=== PATIENT | female | born 1995 | race Caucasian/White ===

== ENCOUNTER 2018-11-23 13:03 | Emergency (ER) | payer OTHER ==
--- NOTE | 2018-11-23 15:20 | EDM.PDOC ---
ED HPI GENERAL MEDICAL PROBLEM - General Chief Complaint: General Stated Complaint: SWOLLEN RIGHT FOOT Time Seen by Provider: 11/23/18 13:10 Source of Information: Reports: Patient - History of Present Illness INITIAL COMMENTS - FREE TEXT/NARRATIVE: 23 year old female has had onset of pain and swelling R anterior ankle, distal leg and proximal foot over the past few days. Pain is worse to move ankle and with walking. No known injury. No other joint swelling or pain at this time. Right Feet Pain Score (Numeric/FACES): 3 - Related Data Allergies Allergy/AdvReac Type Severity Reaction Status Date / Time No Known Allergies Allergy Verified 11/23/18 13:11 Home Meds: Home Meds . [No Known Home Meds] 11/23/18 [History] Past Medical History - Past Health History Medical/Surgical History: Denies Medical/Surgical History Social & Family History - Tobacco Use Smoking Status *Q: Never Smoker Second Hand Smoke Exposure: No - Caffeine Use Caffeine Use: Reports: Coffee - Alcohol Use Days Per Week of Alcohol Use: 7 Number of Drinks Per Day: 1 Total Drinks Per Week: 7 - Recreational Drug Use Recreational Drug Use: No Review of Systems - Review of Systems Review Of Systems: See Below Constitutional: Denies: Chills, Fever Mouth/Throat: Reports: No Symptoms Respiratory: Denies: Shortness of Breath Cardiovascular: Denies: Chest Pain GI/Abdominal: Denies: Abdominal Pain, Nausea, Vomiting Musculoskeletal: Reports: Joint Pain. Denies: Neck Pain, Shoulder Pain, Arm Pain Skin: Denies: Rash Neurological: Denies: Numbness, Tingling, Weakness ED EXAM, GENERAL - Physical Exam Exam: See Below General Appearance: Alert, No Apparent Distress Head: Atraumatic. No: Facial Swelling Neck: Supple, Full Range of Motion Respiratory/Chest: No Respiratory Distress, Lungs Clear Cardiovascular: Regular Rate, Rhythm Extremities: Other (there is mild tenderness over the anterior R ankle, distal R lower leg, no visible swelling, no warmth or erythem, mild pain with ankle flexion and dorsiflexion). No: Pedal Edema, Increased Warmth, Redness Neurological: No Motor/Sensory Deficits Skin Exam: Warm, Dry, Normal Color, No Rash Course - Vital Signs Last Recorded V/S: Last Vital Signs Temp 97.3 F 11/23/18 13:10 Pulse 93 11/23/18 13:10 Resp 14 11/23/18 13:10 BP 129/83 11/23/18 13:10 Pulse Ox 99 11/23/18 13:10 - Orders/Labs/Meds Labs: Laboratory Tests 11/23/18 11/23/18 11/23/18 Range/Units 13:49 13:49 13:49 WBC 7.89 (3.98-10.04) K/mm3 RBC 4.33 (3.98-5.22) M/mm3 Hgb 12.4 (11.2-15.7) gm/dl Hct 36.1 (34.1-44.9) % MCV 83.4 (79.4-94.8) fl MCH 28.6 (25.6-32.2) pg MCHC 34.3 (32.2-35.5) g/dl RDW Std Deviation 40.7 (36.4-46.3) fL Plt Count 269 (182-369) K/mm3 MPV 10.5 (9.4-12.3) fl Neut % (Auto) 60.2 (34.0-71.1) % Lymph % (Auto) 31.3 (19.3-51.7) % [place] % (Auto) 5.6 (4.7-12.5) % Eos % (Auto) 2.5 (0.7-5.8) Baso % (Auto) 0.4 (0.1-1.2) % Neut # (Auto) 4.75 (1.56-6.13) K/mm3 Lymph # (Auto) 2.47 (1.18-3.74) K/mm3 [place] # (Auto) 0.44 H (0.24-0.36) K/mm3 Eos # (Auto) 0.20 (0.04-0.36) K/mm3 Baso # (Auto) 0.03 (0.01-0.08) K/mm3 D-Dimer, Quantitative < 0.19 L (0.19-0.50) mg/L Sodium 139 (136-145) mEq/L Potassium 3.4 L (3.5-5.1) mEq/L Chloride 104 (98-107) mEq/L Carbon Dioxide 26 (21-32) mEq/L Anion Gap 12.4 (5-15) BUN 11 (7-18) mg/dL Creatinine 0.7 (0.55-1.02) mg/dL Est Cr Clr Drug Dosing 107.93 mL/min Estimated GFR (MDRD) > 60 (>60) mL/min BUN/Creatinine Ratio 15.7 (14-18) Glucose 106 (74-106) mg/dL Calcium 8.5 (8.5-10.1) mg/dL Total Bilirubin 0.3 (0.2-1.0) mg/dL AST 9 L (15-37) U/L ALT 21 (14-59) U/L Alkaline Phosphatase 62 (46-116) U/L Total Protein 6.9 (6.4-8.2) g/dl Albumin 3.6 (3.4-5.0) g/dl Globulin 3.3 gm/dL Albumin/Globulin Ratio 1.1 (1-2) TSH 3rd Generation 1.334 (0.358-3.74) uIU/mL - Re-Assessments/Exams Free Text/Narrative Re-Assessment/Exam: 11/25/18 13:01 labs including D dimer and tsh normal, discharge instr. as documented Departure - Departure Time of Disposition: 15:18 Disposition: Home, Self-Care 01 Condition: Fair Clinical Impression: Tendonitis of ankle or foot - Discharge Information Instructions: Tendinitis Referrals: Liliana Acosta PA-C [Primary Care Provider] - Forms: ED Department Discharge Additional Instructions: advil or ibuprofen 600 mg 3 times daily with food, alternate ice and heat as needed, follow up with Liliana at the clinic later this week or early next week , call for appt.
== END 2018-11-23 15:27 | disposition home or self-care (01) ==
LOC: JD.ED 13:03
DX: M77.51 Other enthesopathy of right foot and ankle (principal)
CPT/HCPCS: 36415; 80053; 84443; 85025; 85379; 99282; 99283

== ENCOUNTER 2019-10-24 15:09 | Emergency (ER) | payer OTHER ==
--- NOTE | 2019-10-24 15:27 | EDM.PDOC ---
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 No prior spotting. No abd or pelvic pain or cramping. Did have an US at about 9 wks reported to be nl. 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: Reports: - Past Surgical History Female Surgical History: Reports: D&C Social & Family History - Tobacco Use Smoking Status *Q: Never Smoker Second Hand Smoke Exposure: No - Caffeine Use Caffeine Use: Reports: None - Recreational Drug Use Recreational Drug Use: No ED ROS GENERAL - Review of Systems Review Of Systems: See Below Constitutional: Denies: Fever, Chills, Diaphoresis HEENT: Reports: No Symptoms Respiratory: Denies: Shortness of Breath, Cough Cardiovascular: Denies: Chest Pain GI/Abdominal: Denies: Abdominal Pain, Nausea, Vomiting Skin: Reports: No Symptoms Neurological: Reports: No Symptoms ED EXAM, RENAL/ - Physical Exam Exam: See Below General Appearance: Alert, No Apparent Distress Head: Atraumatic Neck: Supple Respiratory/Chest: No Respiratory Distress, Lungs Clear, Normal Breath Sounds Cardiovascular: Regular Rate, Rhythm GI/Abdominal: Soft, Non-Tender. No: Guarding Back Exam: No: CVA Tenderness (L), CVA Tenderness (R) Extremities: Normal Inspection Neurological: Alert, Oriented, No Motor/Sensory Deficits Skin Exam: Warm, Dry, Normal Color Course - Vital Signs Last Recorded V/S: Last Vital Signs Temp 97 F 10/24/19 15:22 Pulse 88 10/24/19 18:40 Resp 19 10/24/19 18:40 BP 136/90 10/24/19 18:40 Pulse Ox 100 10/24/19 18:40 - Orders/Labs/Meds Labs: Laboratory Tests 10/24/19 Range/Units 15:44 HCG, Quant 6019.0 mIU/mL - Re-Assessments/Exams Free Text/Narrative Re-Assessment/Exam: 10/24/19 18:27 HCG 6,000, too low for a 13 wk , Pelvic US shows intrauterine gest. sac, crown rump lenght 8 wk 6 days, no heart activity. Findings compat able with nonviable . Have discussed with patient. Her OB doc is from [place], She will call [facility] in AM. Return precautions given. Departure - Departure Time of Disposition: 18:29 Disposition: Home, Self-Care 01 Condition: Fair Clinical Impression: Nonviable - Discharge Information Instructions: Miscarriage, [id number] Referrals: Liliana Acosta PA-C [Primary Care Provider] - Forms: ED Department Discharge Additional Instructions: As discussed your quantitative Hcg was low at about 6,000. The expectation is that it would be considerably higher. The pelvic US does show a gestational sac with crown rump length of about 8 weeks, 6 days. No heart activity seen compatable with nonviable . Rest. Drink plenty of water to maintain hydration. Call your OB Provider's office tomorrow AM, discuss how you are doing and findings from this evening. Return if soaking more than 1 pad per abdi r for more than 2 hours or otherwise as needed. Sepsis Event Note (ED) - Evaluation Sepsis Screening Result: No Definite Risk
--- NOTE | 2019-10-24 17:57 | US ---
Trimester obstetrical ultrasound: Multiple real-time images were obtained transvaginally. Comparison: No previous study for current is available. Dates: Current ultrasound: XAVIER 05/29/20, gestational age 8 weeks 6 days Single intrauterine gestational sac is seen. Small embryo is identified. Very minimal subchorionic hemorrhage is present. Right maternal ovary not well seen. Left maternal ovary shows evidence of a cyst measuring 3.3 cm which is most likely due to corpus luteum cyst. Measurements: Earth-rump length: 2.22 cm - 8 weeks 6 days Heart rate: No heart activity is seen. Impression: 1. Single intrauterine gestation. Dates as noted above. 2. No heart activity is seen which should be visible at this gestational age. Findings are felt compatible with nonviable . Diagnostic code #5 This report was dictated in MDT
== END 2019-10-24 18:40 | disposition home or self-care (01) ==
LOC: JD.ED 15:09
DX: O36.4XX0 Maternal care for intrauterine death, not applicable or unspecified (principal)
CPT/HCPCS: 36415; 76817; 76817-26; 84702; 99284-25

== ENCOUNTER 2020-08-29 02:58 | Inpatient (IN) | payer OTHER ==
[2020-08-29] MEDS ORDERED: Nalbuphine 10 MG/1 ML Vial IVPUSH PRN (03:33)
[2020-08-29] MEDS ORDERED: Sodium Chloride 0.9% 10 ML Syringe FLUSH PRN (03:33)
[2020-08-29] MEDS ORDERED: Ampicillin 2 GM in Sodium Chloride 0.9% 100 ML IV ONE (03:33)
[2020-08-29] MEDS ORDERED: Oxytocin/Lactated Ringers 10 UNIT/1,000 ML BAG IV SCH ×2 (03:45→05:30)
[2020-08-29] MEDS: Lactated Ringers 1,000 ML IV SCH ×3 (05:33→13:55)
[2020-08-29] MEDS: Ampicillin 1 GM in Sodium Chloride 0.9% 100 ML IV SCH ×3 (08:07→15:59)
--- NOTE | 2020-08-29 09:22 | PCM.LDHP ---
L&D History of Present Illness - General Date of Service: 08/29/20 Admit Problem/Dx: Patient Status Order with Admit Dx/Problem 08/29/20 03:33 Patient Status [ADT] Routine Admission Diagnosis/Problem Admission Diagnosis/Problem 08/29/20 09:12 Jyotsna is a 30-year-old 3 para 1-0-1-1 female who is presently at 39-0/7 weeks gestational age with an XAVIER of 09/05/2020 admitted on the a.m. of 08/29 for induction of labor. Source of Information: Patient History Limitations: Reports: No Limitations - History of Present Illness Introduction:: Jyotsna is a 25-year-old 3 para 1-0-1-1 female who is presently at 39-0/7 weeks gestational age with an XAVIER of 09/05/2020 admitted on the a.m. of 08/30/19 for induction of labor. The procedure and process of induction of labor, its risks, benefits limitations and follow-up along with alternatives including allowing for natural onset of labor discussed in detail with patient. She appears to understand and wishes to proceed. She is a patient who has received her care from Dr. Kleber Ibanez who scheduled the induction. LETTERER history: 3 para 1-0-1-1. Patient had menarche at age 10. Cycles are reported to be reasonably regular. Her XAVIER of 09/05/2020 was set by a 6-6/7-week gestational age ultrasound done on 01/17/2020 and supported by at least 4 other ultrasounds during the course of her care. Her last LMP of 11/24/2019 was less than certain. Patient denies any history of STIs or abnormal Pap smears. She had a D&C done in 2018 and again in 2021 1 being done for her miscarriage. Past obstetric history includes the followin. Male infant born 02/01/2018 at 38 weeks gestational age7 hours of laborbirth weight 7 pounds 8 ounces. . Epidural used for analgesia. Baby born in [place], [place]. Child's name is Matt. Had a D&C 1 week after for bleeding reasons. course: Patient was initially seen at 6-6/7 weeks gestational age. First visit was on 02/23/2020. She had regular evaluations during the course of the . Her weight gain was approximately 37 pounds. Vital signs including blood pressure remained stable throughout the course. Her fundal height growth has been a little bit ahead of schedule but within normal limits. Patient has an anterior placenta with multiple placental lakes but no evidence of previa. Group B strep was positive and patient has received her first dose of antibiotics in L&D. The baby did measure at the 89th percentile on ultrasound on 05/28/2020. Most recent ultrasound performed on 08/21/2020 given estimated weight of 7 pounds 4 ounces (3566 g). This placed her at the 81st percentile. Patient declined prequel genetic testing. labs: Blood is a positive with a negative antibody screen. First laboratory testing showed hemoglobin 12.5 g/dL and platelets at 239,000. She is rubella immune. RPR is nonreactive. Urine culture is negative. Hepatitis B surface antigen and HIV assays both negative. Chlamydia, gonorrhea and HCV antibody testing was negative. Second trimester RPR was nonreactive on 05/28/2020. Second trimester lab testing otherwise showed a hemoglobin of 10.7 g/dL and platelet count was 220,000. Her 1 hour GTT was normal at 123. Group B strep screen was positive. Allergies: None Medications: 1. Stool softener in the form of docusate sodium 100 mg oral capsule daily 2. tablets 1 p.o. daily. Past medical history: 1. x1 02/01/2018 at 38 weeks gestational age. 2. Miscarriage 10/18/2019 Past surgical history: 1. D&C done October 2019 for miscarriage 2. D&C done 2018 Family history: Patient's mother has history of spina bifida. There are no other significant abnormalities noted in the family history such as bleeding or clotting disorders, asthma, anesthesia problems, unusual reactions to medications or related problems. Social history: Patient is . She is a [id number] mom. She is a high school graduate. Her is Lino Lopez. She does not use any significance alcohol, drugs or tobacco. She lives in [place], [place]. Review of systems: In general patient has no complaints. Reports good activity at present. No significant contractions noted. Skin: Negative Lungs: No infectious symptoms or shortness of breath Cardiovascular: No chest pain or exercise intolerance Breasts: No lumps, changes in size, pain, dimpling, discharge or axillary or supraclavicular concerns. GI: Negative : Body habitus changes associated with . Musculoskeletal: Negative Neurological: Negative Physical exam: In general the patient is well-developed, well-nourished, pleasant female of stated age in no acute distress. On last evaluation clinic on 08/22/2020 patient's blood pressure is 108/62 her weight was 244 pounds with a first weight at 207.8 pounds. Height is 5 feet 4 inches. Prepregnancy body mass index is 35.2. Skin is warm dry without lesions. HEENT, neck and back within normal limits. Lungs are clear with good breath sounds in all lung [place]. Cardiovascular exam shows regular and rhythm without murmurs. Breast exam is deferred at this time having been done at first visit and found to be normal. Patient does plan to breast-feed. Abdomen is gravid with fundal height on last evaluation clinic at 40 cm with baby in vertex presentation. Genital per digital evaluation shows cervix to be 3 cm, 80% effaced, -3 station but had well applied to the cervix. Mid position, very soft. Artificial rupture membranes undertaken with resultant clear amniotic fluid. Patient received her first dose of antibiotics consisting of ampicillin per protocol 4 hours prior to rupture membranes. Extremities and neurological exam are grossly within normal limits. - Related Data Allergies/Adverse Reactions: Allergies Allergy/AdvReac Type Severity Reaction Status Date / Time No Known Allergies Allergy Verified 10/24/19 15:24 Home Medications: Home Meds Pnv No.95/Ferrous Fum/Folic AC [ Vitamin Tablet] 1 tab PO DAILY 10/24/19 [History] Docusate Sodium [Colace] 100 mg PO BID PRN 08/29/20 [History] Nystatin [Nyamyc] 1 applic TOP DAILY PRN 08/29/20 [History] Nystatin [Nyamyc] 1 applic TOP TID 08/29/20 [History] Past Medical History - Past Health History Medical/Surgical History: Denies Medical/Surgical History HEENT History: Reports: Other (See Below) Other HEENT History: states she has drainage in ears this year Gastrointestinal History: Reports: Chronic Constipation LETTERER History: Reports: Dermatologic History: Reports: Other (See Below) Other Dermatologic History: heat rash under breast and groin area, uses nystatin power and cream - Infectious Disease History Infectious Disease History: Reports: Chicken Pox - Past Surgical History Female Surgical History: Reports: D&C Social & Family History - Family History Family Medical History: Unobtainable - Tobacco Use Tobacco Use Status *Q: Never Tobacco User - Caffeine Use Caffeine Use: Reports: None - Recreational Drug Use Recreational Drug Use: No H&P Review of Systems - Review of Systems: Review Of Systems: See Below L&D Exam - Exam Exam: See Below - Vital Signs Vital Signs: Last Vital Signs Temp 36.3 C 08/29/20 03:37 Pulse 89 08/29/20 03:37 Resp 14 08/29/20 03:37 BP 116/63 08/29/20 03:37 Pulse Ox 97 08/29/20 03:37 Weight: 110.677 kg - Patient Data Lab Results Last 24 hrs: Laboratory Results - last 24 hr 08/29/20 08/29/20 08/29/20 Range/Units 03:15 03:45 03:45 WBC 9.41 (3.98-10.04) K/mm3 RBC 4.20 (3.98-5.22) M/mm3 Hgb 11.1 L (11.2-15.7) gm/dl Hct 34.9 (34.1-44.9) % MCV 83.1 D (79.4-94.8) fl MCH 26.4 (25.6-32.2) pg MCHC 31.8 L (32.2-35.5) g/dl RDW Std Deviation 48.0 H (36.4-46.3) fL Plt Count 210 (182-369) K/mm3 MPV 10.4 (9.4-12.3) fl Neut % (Auto) 63.8 (34.0-71.1) % Lymph % (Auto) 26.4 (19.3-51.7) % [place] % (Auto) 6.3 (4.7-12.5) % Eos % (Auto) 2.9 (0.7-5.8) Baso % (Auto) 0.3 (0.1-1.2) % Neut # (Auto) 6.01 (1.56-6.13) K/mm3 Lymph # (Auto) 2.48 (1.18-3.74) K/mm3 [place] # (Auto) 0.59 H (0.24-0.36) K/mm3 Eos # (Auto) 0.27 (0.04-0.36) K/mm3 Baso # (Auto) 0.03 (0.01-0.08) K/mm3 SARS-CoV-2 RNA (BRIGITTE) Negative (NEGATIVE) Blood Type A POSITIVE Gel Antibody Screen Negative Result Diagrams: 08/29/20 03:45 - Problem List (1) 39 weeks gestation of SNOMED Code(s): 07401886 ICD Code: Z3A.39 - 39 WEEKS GESTATION OF Status: Acute Current Visit: Yes (2) Group beta Strep positive SNOMED Code(s): 113314474, 121103275 ICD Code: B95.1 - STREPTOCOCCUS, GROUP B, CAUSING DISEASES CLASSD [id number] Status: Acute Current Visit: Yes (3) Obesity (BMI 30-39.9) SNOMED Code(s): 642672979, 648685601 ICD Code: E66.9 - OBESITY, UNSPECIFIED Status: Acute Current Visit: Yes Problem List Initiated/Reviewed/Updated: Yes Orders Last 24hrs: Active Orders 24 hr Category Date Time Status Patient Status [ADT] Routine ADT 08/29/20 03:33 Active Activity as Tolerated [RC] PFP Care 08/29/20 03:33 Active Antiembolic Devices [RC] PER UNIT ROUTINE Care 08/29/20 06:28 Active Communication Order [RC] ASDIRECTED Care 08/29/20 03:33 Active Notify Provider [RC] PFP Care 08/29/20 03:33 Active Notify Provider [RC] PRN Care 08/29/20 03:33 Active Peripheral IV Care [RC] Q4HR Care 08/29/20 03:34 Active Vital Signs [RC] PER UNIT ROUTINE Care 08/29/20 03:33 Active Regular Diet [DIET] Diet 08/29/20 Breakfast Active RAPID PLASMA REAGIN,RPR [CHEM] Routine Lab 08/29/20 03:45 Received Ampicillin 1 gm Med 08/29/20 08:00 Active Sodium Chloride 0.9% [Normal Saline] 100 ml IV Q4H Lactated Ringers [Ringers, Lactated] 1,000 ml Med 08/29/20 03:45 Active IV ASDIRECTED Nalbuphine [Nubain] Med 08/29/20 03:33 Active 10 mg IVPUSH Q2H PRN Oxytocin/Lactated Ringers [Pitocin in LR 10 Units/1,000 Med 08/29/20 03:45 Active ML] 10 unit in 1,000 ml IV .CONTINUOUS Oxytocin/Lactated Ringers [Pitocin in LR 10 Units/1,000 Med 08/29/20 05:30 Active ML] 10 unit in 1,000 ml IV TITRATE Sodium Chloride 0.9% [Saline Flush] Med 08/29/20 03:33 Active 10 ml FLUSH ASDIRECTED PRN Electronic Heart Tones Ext w TOCO [WOMSER] Ot 08/29/20 03:33 Ordered Routine Electronic Heart Tones Internal [WOMSER] Per Unit Ot 08/29/20 03:33 Ordered Routine Peripheral IV Insertion Adult [OM.PC] Routine Ot 08/29/20 03:33 Ordered PILO Hose [Antiembolic Hose] [OM.PC] Routine Ot 08/29/20 06:27 Ordered Resuscitation Status Routine Resus Stat 08/29/20 03:33 Ordered Medication Orders Ampicillin Sodium 1 gm/ Sodium (Chloride) 100 mls @ 200 mls/hr IV Q4H IVETH Last Admin: 08/29/20 08:07 Dose: 200 mls/hr Documented by: JUAN MANUEL Oxytocin/Lactated Ringer's (Pitocin In Lr 10 Units/1,000 Ml) 10 unit in 1,000 mls @ 500 mls/hr IV .CONTINUOUS IVETH Lactated Ringer's (Ringers, Lactated) 1,000 mls @ 100 mls/hr IV ASDIRECTED IVETH Last Admin: 08/29/20 05:33 Dose: 100 mls/hr Documented by: KATHERINE Oxytocin/Lactated Ringer's (Pitocin In Lr 10 Units/1,000 Ml) 10 unit in 1,000 mls @ 12 mls/hr IV TITRATE IVETH; Protocol Last Titration: 08/29/20 08:15 Dose: 10 munits/min, 60 mls/hr Documented by: JUAN MANUEL Titration: 08/29/20 07:10 Dose: 8 munits/min, 48 mls/hr Documented by: Titration: 08/29/20 06:40 Dose: 6 munits/min, 36 mls/hr Documented by: Titration: 08/29/20 06:10 Dose: 4 munits/min, 24 mls/hr Documented by: Admin: 08/29/20 05:34 Dose: 2 munits/min, 12 mls/hr Documented by: KATHERINE Nalbuphine HCl (Nalbuphine 10 Mg/1 Ml Vial) 10 mg IVPUSH Q2H PRN PRN Reason: Pain Sodium Chloride (Sodium Chloride 0.9% 10 Ml Syringe) 10 ml FLUSH ASDIRECTED PRN PRN Reason: Keep Vein Open Assessment/Plan Comment:: 1. Jyotsna is a 30-year-old 3 para 1-0-1-1 female who is presently at 39- 0/7 weeks gestational age with an XAVIER of 09/05/2020 admitted on the a.m. of 08/29/2020 for induction of labor. 2. Group B strep positive status 3. Patient had her Tdap on 06/26/2020. She is rubella immune. 4. Patient plans to breast-feed 5. Patient wishes to have a natural labor but is okay with epidural 6. Risk factors for the include obesity. Plan: 1. Pitocin induction of labor was artificial rupture membranes augmentation with resultant clear amniotic fluid. 2. Group B strep prophylaxis ampicillin per protocol 3. Support breast-feeding decision 4. Epidural per patient desire 5. Admission labs consist of CBC, Covid testing, RPR.
[2020-08-29] MEDS ORDERED: diphenhydrAMINE 50 MG/ML SDV IVPUSH PRN (11:31)
[2020-08-29] MEDS ORDERED: Bupivacaine/fentaNYL/NS 100 ML Bag EPIDUR PRN (11:31)
[2020-08-29] MEDS ORDERED: ePHEDrine 50 MG/ML SDV IVPUSH PRN (11:31)
[2020-08-29] MEDS ORDERED: fentaNYL 100 MCG/2 ML SDV EPIDUR PRN (11:31)
--- NOTE | 2020-08-29 12:01 | PCM.PREANE ---
Preanesthetic Assessment - Procedure Proposed Procedure: octavia - Anesthesia/Transfusion/Family Hx Anesthesia History: Prior Anesthesia Without Reaction Family History of Anesthesia Reaction: No Transfusion History: No Prior Transfusion(s) - Review of Systems General: No Symptoms Pulmonary: No Symptoms Cardiovascular: No Symptoms Gastrointestinal: No Symptoms Neurological: No Symptoms Other: Reports: None - Physical Assessment Vital Signs: Last Vital Signs Temp 97.4 F 08/29/20 03:37 Pulse 89 08/29/20 03:37 Resp 14 08/29/20 03:37 BP 116/63 08/29/20 03:37 Pulse Ox 97 08/29/20 03:37 Height: 5 ft 4 in Weight: 110.677 kg ASA Class: 2 Mental Status: Alert & Oriented x3 Airway Class: Mallampati = 1 Dentition: Reports: Normal Dentition Thyro-Mental Finger Breadths: 3 Mouth Opening Finger Breadths: 3 ROM/Head Extension: Full Lungs: Clear to Auscultation, Normal Respiratory Effort Cardiovascular: Regular Rate, Regular Rhythm - Lab Values: Laboratory Last Values WBC 9.41 K/mm3 (3.98-10.04) 08/29/20 03:45 RBC 4.20 M/mm3 (3.98-5.22) 08/29/20 03:45 Hgb 11.1 gm/dl (11.2-15.7) L 08/29/20 03:45 Hct 34.9 % (34.1-44.9) 08/29/20 03:45 MCV 83.1 fl (79.4-94.8) D 08/29/20 03:45 MCH 26.4 pg (25.6-32.2) 08/29/20 03:45 MCHC 31.8 g/dl (32.2-35.5) L 08/29/20 03:45 RDW Std Deviation 48.0 fL (36.4-46.3) H 08/29/20 03:45 Plt Count 210 K/mm3 (182-369) 08/29/20 03:45 MPV 10.4 fl (9.4-12.3) 08/29/20 03:45 Neut % (Auto) 63.8 % (34.0-71.1) 08/29/20 03:45 Lymph % (Auto) 26.4 % (19.3-51.7) 08/29/20 03:45 Warrick % (Auto) 6.3 % (4.7-12.5) 08/29/20 03:45 Eos % (Auto) 2.9 (0.7-5.8) 08/29/20 03:45 Baso % (Auto) 0.3 % (0.1-1.2) 08/29/20 03:45 Neut # (Auto) 6.01 K/mm3 (1.56-6.13) 08/29/20 03:45 Lymph # (Auto) 2.48 K/mm3 (1.18-3.74) 08/29/20 03:45 Warrick # (Auto) 0.59 K/mm3 (0.24-0.36) H 08/29/20 03:45 Eos # (Auto) 0.27 K/mm3 (0.04-0.36) 08/29/20 03:45 Baso # (Auto) 0.03 K/mm3 (0.01-0.08) 08/29/20 03:45 SARS-CoV-2 RNA (BRIGITTE) Negative (NEGATIVE) 08/29/20 03:15 Blood Type A POSITIVE 08/29/20 03:45 Gel Antibody Screen Negative 08/29/20 03:45 - Allergies Allergies/Adverse Reactions: Allergies Allergy/AdvReac Type Severity Reaction Status Date / Time No Known Allergies Allergy Verified 10/24/19 15:24 - Blood Blood Available: No - Acknowledgements Anesthesia Type Planned: Epidural Pt an Appropriate Candidate for the Planned Anesthesia: Yes Alternatives and Risks of Anesthesia Discussed w Pt/Guardian: Yes Pt/Guardian Understands and Agrees with Anesthesia Plan: Yes PreAnesthesia Questionnaire - Past Health History Medical/Surgical History: Denies Medical/Surgical History HEENT History: Reports: Other (See Below) Other HEENT History: states she has drainage in ears this year Cardiovascular History: Reports: None Respiratory History: Reports: None Gastrointestinal History: Reports: Chronic Constipation PUMP OILER History: Reports: : 3 Para: 1 Musculoskeletal History: Reports: None Endocrine/Metabolic History: Reports: Obesity/BMI 30+ Dermatologic History: Reports: Other (See Below) Other Dermatologic History: heat rash under breast and groin area, uses nystatin power and cream - Infectious Disease History Infectious Disease History: Reports: Chicken Pox - Past Surgical History Female Surgical History: Reports: D&C - SUBSTANCE USE Tobacco Use Status *Q: Former Tobacco User Tobacco Use Within Last Twelve Months: Vaping Second Hand Smoke Exposure: No Days Per Week of Alcohol Use: 0 Recreational Drug Use History: No - HOME MEDS Home Medications: Home Meds Pnv No.95/Ferrous Fum/Folic AC [ Vitamin Tablet] 1 tab PO DAILY 10/24/19 [History] Docusate Sodium [Colace] 100 mg PO BID PRN 08/29/20 [History] Nystatin [Nyamyc] 1 applic TOP DAILY PRN 08/29/20 [History] Nystatin [Nyamyc] 1 applic TOP TID 08/29/20 [History] - CURRENT (IN HOUSE) MEDS Current Meds: Current Medications Diphenhydramine HCl (Diphenhydramine 50 Mg/Ml Sdv) 25 mg IVPUSH Q6H PRN PRN Reason: pruritis Ephedrine Sulfate (Ephedrine 50 Mg/Ml Sdv) 5 mg IVPUSH ASDIRECTED PRN PRN Reason: Hypotension Fentanyl (Fentanyl 100 Mcg/2 Ml Sdv) 100 mcg EPIDUR Q3H PRN PRN Reason: Pain Last Admin: 08/29/20 11:39 Dose: 100 mcg Documented by: Fentanyl/Bupivacaine HCl (Bupivacaine/Fentanyl/Ns 100 Ml Bag) 100 ml EPIDUR ASDIRECTED PRN PRN Reason: Pain Last Admin: 08/29/20 11:40 Dose: 100 ml Documented by: Ampicillin Sodium 1 gm/ Sodium (Chloride) 100 mls @ 200 mls/hr IV Q4H IVETH Last Admin: 08/29/20 08:07 Dose: 200 mls/hr Documented by: Oxytocin/Lactated Ringer's (Pitocin In Lr 10 Units/1,000 Ml) 10 unit in 1,000 mls @ 500 mls/hr IV .CONTINUOUS IVETH Lactated Ringer's (Ringers, Lactated) 1,000 mls @ 100 mls/hr IV ASDIRECTED IVETH Last Admin: 08/29/20 11:42 Dose: 100 mls/hr Documented by: Oxytocin/Lactated Ringer's (Pitocin In Lr 10 Units/1,000 Ml) 10 unit in 1,000 mls @ 12 mls/hr IV TITRATE IVETH; Protocol Last Titration: 08/29/20 10:00 Dose: 12 munits/min, 72 mls/hr Documented by: Nalbuphine HCl (Nalbuphine 10 Mg/1 Ml Vial) 10 mg IVPUSH Q2H PRN PRN Reason: Pain Sodium Chloride (Sodium Chloride 0.9% 10 Ml Syringe) 10 ml FLUSH ASDIRECTED PRN PRN Reason: Keep Vein Open Discontinued Medications Ampicillin Sodium 2 gm/ Sodium (Chloride) 100 mls @ 200 mls/hr IV ONETIME ONE Stop: 08/29/20 04:02 Last Admin: 08/29/20 04:15 Dose: 200 mls/hr Documented by:
[2020-08-29] MEDS ORDERED: Bupivacaine 0.25% 10 ML SDV ONE (16:00)
--- NOTE | 2020-08-29 19:07 | PCM.SN.2 ---
- Free Text/Narrative Note: Labor and delivery note: Stage I: Jyotsna is a 30-year-old 3 para 1-0-1-1 female who is presently at 39-0/7 weeks gestational age with an XAVIER of 09/05/2020 admitted on the a.m. of 08/29/2020 for induction of labor. Induction was started with Pitocin and after adequate descent and engagement of the head AROM was undertaken with resultant clear amniotic fluid. Pitocin was continued with good progress. Patient underwent labor epidural for analgesia. She had good results with this. She achieved complete cervical dilation by approximately 1700 hrs. Stage II: The patient had a spontaneous vaginal delivery at 1720 hrs. on 08/29/2020. Nuchal cord was noted x2 and this was reduced over the baby's head without problems. She delivered a viable, ojeda, male infant named Gerry Huynh in a direct occiput anterior position. Gerry Huynh weighed 3400 g (7 pounds 7.9 ounces) and had Apgars of 8 and 9. The baby was placed on mom's abdomen, dried with warm blanket, nose and mouth were bulb suctioned. Pitocin was increased to 500 cc/h with the present solution concentration. This to facilitate increase in uterine tone and decrease likelihood of bleeding. Patient was noted to have an intact perineum. The umbilical cord is allowed to pulsate x2 to 3 minutes and then was clamped x2 and cut. Cord had 3 vessels. Cord blood was obtained. Stage III: Reta delivered the placenta at 1724 hrs. in a Resendez presentation. It appeared intact and complete and was discarded per patient desire. Estimated blood loss was 100 cc. Condition: Good. Patient plans to breast-feed.
[2020-08-29] MEDS ORDERED: Benzocaine/Menthol 20%-0.5% Spray 56 GM Canister TOP PRN (19:11)
[2020-08-29] MEDS ORDERED: Witch Hazel Medicated Pads 40/Jar TOP PRN (19:11)
[2020-08-29] MEDS: Ibuprofen 600 MG Tab PO PRN (19:41)
[2020-08-29] MEDS: Docusate Sodium 100 MG Cap PO PRN (19:42)
[2020-08-29] MEDS: Acetaminophen 325 MG Tab PO PRN (22:49)
[2020-08-30] MEDS: Ibuprofen 600 MG Tab PO PRN ×3 (03:47→13:36)
--- NOTE | 2020-08-30 07:49 | PCM.SN.2 ---
- Free Text/Narrative Note: Visited patient regarding patient's epidural experience. Patient stated that the epidural "worked great" and was very happy about her experience. Patient denying nausea/vomiting, headache, dizziness, ringing in ears, or signs of infection. Patient complaining of mild back discomfort, discussed that it is normal to have some discomfort but to let the nurse know if there is any increased pain. Discussed signs and symptoms of post-dural puncture headaches, signs of infection, and any increased pain in back. Encouraged patient to contact OB/Anesthesia if any of these symptoms develop so anesthesia can evaluate and treat if needed. Patient verbalized understanding and appeared to be happy baby thr oughout conversation. Ila Reardon CHALKER SOLES
[2020-08-30] MEDS: Docusate Sodium 100 MG Cap PO PRN (08:22)
--- NOTE | 2020-08-30 08:42 | PCM.SN.2 ---
- Free Text/Narrative Note: Post Progress Note PPD #1 Subjective: Doing well overall. Reports that she has been having increased amounts of cramping pain overnight and is uncertain if the pain medications have been helping. She has been taking Tylenol and ibuprofen routinely throughout the night. Ambulating without difficulty. Lochia minimal. Voiding without difficulty. Tolerating regular diet without nausea or vomiting. Reports that she has been having minimal breast-feeding throughout the night and that the baby has been feeding well at times and not as well at other times. Reports that her swelling in her legs increased after delivery and has been stable since delivery. Objective: Vitals: Vital Signs - 24 hr 08/29/20 08/30/20 23:55 02:58 Temperature 36.1 C 36.6 C Pulse, 77 66 Peripheral Respiratory 18 16 Rate Blood Pressure 124/85 125/72 O2 Sat by Pulse 98 98 Oximetry Physical Exam General: Alert and oriented, no acute distress Lungs: Clear to auscultation bilaterally Heart: Regular rate and rhythm Abdomen: Soft, minimal appropriate tenderness, non-distended, fundus midline, nontender, and at the umbilicus Extremities: 1+ edema in bilateral lower extremities to knees, PILO hose in place, no calf tenderness bilaterally Laboratory Results - last 24 hr 08/29/20 08/30/20 Range/Units 03:45 05:48 WBC 14.06 H (3.98-10.04) K/mm3 RBC 3.76 L (3.98-5.22) M/mm3 Hgb 10.0 L (11.2-15.7) gm/dl Hct 31.6 L (34.1-44.9) % MCV 84.0 (79.4-94.8) fl MCH 26.6 (25.6-32.2) pg MCHC 31.6 L (32.2-35.5) g/dl RDW Std Deviation 48.7 H (36.4-46.3) fL Plt Count 190 (182-369) K/mm3 MPV 10.4 (9.4-12.3) fl Neut % (Auto) 72.5 H (34.0-71.1) % Lymph % (Auto) 17.8 L (19.3-51.7) % Barren % (Auto) 7.3 (4.7-12.5) % Eos % (Auto) 2.1 (0.7-5.8) Baso % (Auto) 0.2 (0.1-1.2) % Neut # (Auto) 10.18 H (1.56-6.13) K/mm3 Lymph # (Auto) 2.50 (1.18-3.74) K/mm3 Barren # (Auto) 1.03 H (0.24-0.36) K/mm3 Eos # (Auto) 0.30 (0.04-0.36) K/mm3 Baso # (Auto) 0.03 (0.01-0.08) K/mm3 RPR Non-reactive (NONREACTIVE) ASSESSMENT: 25-year-old female -0-1-2 s/p normal vaginal delivery PPD #1, complicated by GBS positive status and received a total of 4 doses of antibiotics prior to delivery and obesity in PLAN: Doing well Breast-feeding with minimal difficulty. Assist as needed Lochia minimal. Continue to monitor for appropriate lochia. Continue routine care Anticipate discharge home today Kleber Ibanez MD 8:41 AM 08/30/2020
--- NOTE | 2020-08-30 08:48 | PCM.DCSUM1 ---
Discharge Summary - Hospital Course Free Text/Narrative:: Stage I: Jyotsna is a 30-year-old 3 para 1-0-1-1 female who is presently at 39-0/7 weeks gestational age with an XAVIER of 09/05/2020 admitted on the a.m. of 08/29/2020 for induction of labor. Induction was started with Pitocin and after adequate descent and engagement of the head AROM was undertaken with resultant clear amniotic fluid. Pitocin was continued with good progress. Patient underwent labor epidural for analgesia. She had good results with this. She achieved complete cervical dilation by approximately 1700 hrs. Stage II: The patient had a spontaneous vaginal delivery at 1720 hrs. on 08/29/2020. Nuchal cord was noted x2 and this was reduced over the baby's head without problems. She delivered a viable, ojeda, male named Gerry Huynh in a direct occiput anterior position. Gerry Huynh weighed 3400 g (7 pounds 7.9 ounces) and had Apgars of 8 and 9. The baby was placed on mom's abdomen, dried with warm blanket, nose and mouth were bulb suctioned. Pitocin was increased to 500 cc/h with the present solution concentration. This to facilitate increase in uterine tone and decrease likelihood of bleeding. Patient was noted to have an intact perineum. The umbilical cord is allowed to pulsate x2 to 3 minutes and then was clamped x2 and cut. Cord had 3 vessels. Cord blood was obtained. Stage III: Reta delivered the placenta at 1724 hrs. in a Resendez presentation. It appeared intact and complete and was discarded per patient desire. Estimated blood loss was 100 cc. Condition: Good. Patient plans to breast-feed. Diagnosis: Stroke: No - Discharge Data Discharge Date: 08/30/20 Discharge Disposition: Home, Self-Care 01 Condition: Good - Referral to Home Health Primary Care Physician: Jason Borden MD - Discharge Diagnosis/Problem(s) (1) Vaginal delivery SNOMED Code(s): 267364579 ICD Code: O80 - ENCOUNTER FOR FULL-TERM UNCOMPLICATED DELIVERY Status: Acute Current Visit: Yes (2) 39 weeks gestation of SNOMED Code(s): 87250338 ICD Code: Z3A.39 - 39 WEEKS GESTATION OF Status: Acute Current Visit: Yes (3) Group beta Strep positive SNOMED Code(s): 465535666, 234828478 ICD Code: B95.1 - STREPTOCOCCUS, GROUP B, CAUSING DISEASES CLASSD [id number] Status: Acute Current Visit: Yes (4) Obesity SNOMED Code(s): 600614905, 664119022 ICD Code: E66.9 - OBESITY, UNSPECIFIED Status: Acute Current Visit: Yes - Patient Summary/Data Complications: None Consults: None Hospital Course: Jyotsna Lopez was admitted for elective induction of labor. On admission her cervix was dilated to 3 cm. She was GBS positive and was started on ampicillin for GBS prophylaxis. She received a total of 4 doses prior to delivery. She was given pitocin for induction of labor. She had artificial rupture of membranes with clear fluid. She had an epidural for anesthesia. She progressed to complete and began pushing. On 08/29/2020 she had a normal vaginal delivery of a live male infant at 17:20. Apgars of 8 and 9. Weight of 3400 g (7 pounds 7.9 ounces). Her course was uneventful. Her pain was well controlled and she had minimal lochia. She was ambulating, tolerating a regular diet and voiding normally. She was breast-feeding with minimal difficulty. She was afebrile and her hematocrit was 31.6 on PPD #1. She desired to be discharged home in the afternoon of PPD #1. Her blood type is A+. - Patient Instructions Diet: Regular Diet as Tolerated Activity: Apply Ice, As Tolerated Activity, Other: Nothing in the vagina for 6 weeks Driving: May Drive Today Showering/Bathing: May Shower Notify Provider of: Fever, Increased Pain, Swelling and Redness, Drainage, Nausea and/or Vomiting Other/Special Instructions: Please contact your physician's office if you have heavy vaginal bleeding enough to soak a pad in less than an hour for several hours. Monitor for any signs of an infection in the breasts with severe pain or redness of the breast. - Discharge Plan *PRESCRIPTION DRUG MONITORING PROGRAM REVIEWED*: Not Applicable *COPY OF PRESCRIPTION DRUG MONITORING REPORT IN PATIENT NATALYA: Not Applicable Home Medications: Home Meds Pnv No.95/Ferrous Fum/Folic AC [ Vitamin Tablet] 1 tab PO DAILY 10/24/19 [History] Docusate Sodium [Colace] 100 mg PO BID PRN 08/29/20 [History] Nystatin [Nyamyc] 1 applic TOP DAILY PRN 08/29/20 [History] Nystatin [Nyamyc] 1 applic TOP TID 08/29/20 [History] Acetaminophen [Tylenol] 650 mg PO Q4H PRN tablet 08/30/20 [Rx] Benzocaine/Menthol [Dermoplast Pain Relief Dixon] 1 spray TOP ASDIRECTED PRN canister 08/30/20 [Rx] Ibuprofen [Motrin] 600 mg PO Q6H PRN tablet 08/30/20 [Rx] witch Brianna [Tucks] 1 pad TOP ASDIRECTED PRN pad 08/30/20 [Rx] Patient Handouts: Care After Vaginal Delivery Referrals: Kleber Ibanez MD [Physician] - (Follow-up in 2 to 3 weeks for routine visit or earlier as needed.) - Discharge Summary/Plan Comment DC Time >30 min.: No - Patient Data Vitals - Most Recent: Last Vital Signs Temp 36.6 C 08/30/20 02:58 Pulse 66 08/30/20 02:58 Resp 16 08/30/20 02:58 BP 125/72 08/30/20 02:58 Pulse Ox 98 08/30/20 02:58 Weight - Most Recent: 110.677 kg I&O - Last 24 hours: Intake & Output 08/29/20 08/30/20 08/30/20 22:59 06:59 14:59 Output Total 113 Balance -113 Lab Results - Last 24 hrs: Laboratory Results - last 24 hr 08/29/20 08/30/20 Range/Units 03:45 05:48 WBC 14.06 H (3.98-10.04) K/mm3 RBC 3.76 L (3.98-5.22) M/mm3 Hgb 10.0 L (11.2-15.7) gm/dl Hct 31.6 L (34.1-44.9) % MCV 84.0 (79.4-94.8) fl MCH 26.6 (25.6-32.2) pg MCHC 31.6 L (32.2-35.5) g/dl RDW Std Deviation 48.7 H (36.4-46.3) fL Plt Count 190 (182-369) K/mm3 MPV 10.4 (9.4-12.3) fl Neut % (Auto) 72.5 H (34.0-71.1) % Lymph % (Auto) 17.8 L (19.3-51.7) % Curry % (Auto) 7.3 (4.7-12.5) % Eos % (Auto) 2.1 (0.7-5.8) Baso % (Auto) 0.2 (0.1-1.2) % Neut # (Auto) 10.18 H (1.56-6.13) K/mm3 Lymph # (Auto) 2.50 (1.18-3.74) K/mm3 Curry # (Auto) 1.03 H (0.24-0.36) K/mm3 Eos # (Auto) 0.30 (0.04-0.36) K/mm3 Baso # (Auto) 0.03 (0.01-0.08) K/mm3 RPR Non-reactive (NONREACTIVE) Med Orders - Current: Current Medications Acetaminophen (Acetaminophen 325 Mg Tab) 650 mg PO Q4H PRN PRN Reason: mild pain or fever Last Admin: 08/29/20 22:49 Dose: 650 mg Documented by: Benzocaine/Menthol (Benzocaine/Menthol 20%-0.5% Dixon 56 Gm Canister) 0 gm TOP ASDIRECTED PRN PRN Reason: Perineal Comfort Measure Docusate Sodium (Docusate Sodium 100 Mg Cap) 100 mg PO BID PRN PRN Reason: Constipation Last Admin: 08/30/20 08:22 Dose: 100 mg Documented by: Ibuprofen (Ibuprofen 600 Mg Tab) 600 mg PO Q4H PRN PRN Reason: Mild pain or fever Last Admin: 08/30/20 08:22 Dose: 600 mg Documented by: Prenat Multivit/Roosevelt/Iron/Folic Ac ( Multivitamin With Calcium/Folic Acid/Iron Tab) 1 each PO DAILY IVETH Last Admin: 08/30/20 08:22 Dose: 1 each Documented by: Luz Marina Cabrera (Luz Marina Cabrera Medicated Pads 40/Jar) 1 pad TOP ASDIRECTED PRN PRN Reason: Perineal Comfort Measure Discontinued Medications Diphenhydramine HCl (Diphenhydramine 50 Mg/Ml Sdv) 25 mg IVPUSH Q6H PRN PRN Reason: pruritis Ephedrine Sulfate (Ephedrine 50 Mg/Ml Sdv) 5 mg IVPUSH ASDIRECTED PRN PRN Reason: Hypotension Fentanyl (Fentanyl 100 Mcg/2 Ml Sdv) 100 mcg EPIDUR Q3H PRN PRN Reason: Pain Last Admin: 08/29/20 11:39 Dose: 100 mcg Documented by: Fentanyl/Bupivacaine HCl (Bupivacaine/Fentanyl/Ns 100 Ml Bag) 100 ml EPIDUR ASDIRECTED PRN PRN Reason: Pain Last Admin: 08/29/20 11:40 Dose: 100 ml Documented by: Ampicillin Sodium 2 gm/ Sodium (Chloride) 100 mls @ 200 mls/hr IV ONETIME ONE Stop: 08/29/20 04:02 Last Admin: 08/29/20 04:15 Dose: 200 mls/hr Documented by: Ampicillin Sodium 1 gm/ Sodium (Chloride) 100 mls @ 200 mls/hr IV Q4H IVETH Last Admin: 08/29/20 15:59 Dose: 200 mls/hr Documented by: Oxytocin/Lactated Ringer's (Pitocin In Lr 10 Units/1,000 Ml) 10 unit in 1,000 mls @ 500 mls/hr IV .CONTINUOUS IVETH Last Admin: 08/29/20 17:46 Dose: 500 mls/hr Documented by: Lactated Ringer's (Ringers, Lactated) 1,000 mls @ 100 mls/hr IV ASDIRECTED IVETH Last Admin: 08/29/20 13:55 Dose: 100 mls/hr Documented by: Oxytocin/Lactated Ringer's (Pitocin In Lr 10 Units/1,000 Ml) 10 unit in 1,000 mls @ 12 mls/hr IV TITRATE IVETH; Protocol Last Titration: 08/29/20 17:20 Dose: 83.33 munits/min, 500 mls/hr Documented by: Nalbuphine HCl (Nalbuphine 10 Mg/1 Ml Vial) 10 mg IVPUSH Q2H PRN PRN Reason: Pain Sodium Chloride (Sodium Chloride 0.9% 10 Ml Syringe) 10 ml FLUSH ASDIRECTED PRN PRN Reason: Keep Vein Open
[2020-08-30] MEDS ORDERED: Prenatal Multivitamin with Calcium/Folic Acid/Iron Tab PO SCH (09:00)
[2020-08-30] MEDS: Acetaminophen 325 MG Tab PO PRN ×2 (11:54→16:09)
== END 2020-08-30 18:35 | disposition home or self-care (01) | DRG 807 ==
LOC: JD.OB 02:58 → OBSVTOIN 17:20 → JD.OB 17:20
PROVIDERS: ADMIT Obstetrics & Gynecology; ATTEND Obstetrics & Gynecology
PROC: 10E0XZZ Delivery of Products of Conception, External Approach (ICD-10-PCS; principal; 2020-08-29)
PROC: 10907ZC Drainage of Amniotic Fluid, Therapeutic from Products of Conception, Via Natural or Artificial Opening (ICD-10-PCS; 2020-08-29)
PROC: 3E033VJ Introduction of Other Hormone into Peripheral Vein, Percutaneous Approach (ICD-10-PCS; 2020-08-29)
PROC: 3E0R3BZ Introduction of Anesthetic Agent into Spinal Canal, Percutaneous Approach (ICD-10-PCS; 2020-08-29)
PROC: 00HU33Z Insertion of Infusion Device into Spinal Canal, Percutaneous Approach (ICD-10-PCS; 2020-08-29)
DX: O99.824 Streptococcus B carrier state complicating childbirth (principal); Z37.0 Single live birth; O99.214 Obesity complicating childbirth; O99.62 Diseases of the digestive system complicating childbirth; K59.09 Other constipation; O69.81X0 Labor and delivery complicated by cord around neck, without compression, not applicable or unspecified; Z20.822 Contact with and (suspected) exposure to COVID-19; Z3A.39 39 weeks gestation of pregnancy; Z87.891 Personal history of nicotine dependence
CPT/HCPCS: 01967; 36415; 51702; 59025; 59409; 85025; 86592; 86850; 86900; 86901; A9270-GY; J0290; J2590; J3010; J3490; J7120; U0002

== ENCOUNTER 2020-11-06 11:56 | Emergency (ER) | payer OTHER ==
[2020-11-06] MEDS ORDERED: HYDROmorphone 1 MG/ML Syringe IM ONE (12:15)
[2020-11-06] MEDS ORDERED: Sulfamethoxazole/Trimethoprim 800-160 MG Tab PO ONE (12:15)
--- NOTE | 2020-11-06 12:25 | EDM.PDOC ---
ED HPI GENERAL MEDICAL PROBLEM - General Chief Complaint: Lower Extremity Injury/Pain Stated Complaint: SWOLLEN AND RED LEGS POST INGROWN TOE NAIL REMOVAL Time Seen by Provider: 11/06/20 12:10 Source of Information: Reports: Patient, RN Notes Reviewed History Limitations: Reports: No Limitations - History of Present Illness INITIAL COMMENTS - FREE TEXT/NARRATIVE: Patient is a 25-year-old female who presents to the ER for the evaluation of a painful foot. Patient states she had an ingrown toenail removed recently. She awoke this morning, to find her foot more swollen than it normally is, with some redness and drainage coming from the ingrown toenail removal site. She states that she does normally deal with swollen legs and wears compression hose for this. She did not take anything for the pain at home. She has been trying to soak her foot for ongoing management. She has had no fevers or chills, cough or shortness of breath, or any sort of nausea/vomiting/diarrhea. She states however that she does feel hot flashes when the pain is at its worst. Patient's ingrown toenail removal was performed by Dr. Galvin at [facility] in [place]. Left Leg Pain Score (Numeric/FACES): 9 - Related Data Allergies Allergy/AdvReac Type Severity Reaction Status Date / Time No Known Allergies Allergy Verified 10/24/19 15:24 Home Meds: Home Meds Pnv No.95/Ferrous Fum/Folic AC [ Vitamin Tablet] 1 tab PO DAILY 10/24/19 [History] Docusate Sodium [Colace] 100 mg PO BID PRN 08/29/20 [History] Nystatin [Nyamyc] 1 applic TOP DAILY PRN 08/29/20 [History] Nystatin [Nyamyc] 1 applic TOP TID 08/29/20 [History] Acetaminophen [Tylenol] 650 mg PO Q4H PRN tablet 08/30/20 [Rx] Benzocaine/Menthol [Dermoplast Pain Relief [place]] 1 spray TOP ASDIRECTED PRN canister 08/30/20 [Rx] Ibuprofen [Motrin] 600 mg PO Q6H PRN tablet 08/30/20 [Rx] witch Brianna [Tucks] 1 pad TOP ASDIRECTED PRN pad 08/30/20 [Rx] Hydrocodone/Acetaminophen [HYDROcodone-Acetaminophen 5-325 MG] 1 tab PO Q6H PRN #12 tablet 11/06/20 [Rx] Sulfamethoxazole/Trimethoprim [Bactrim Ds Tablet] 1 tab PO BID 8 Days #15 tablet 11/06/20 [Rx] Past Medical History - Past Health History Medical/Surgical History: Denies Medical/Surgical History HEENT History: Reports: Other (See Below) Other HEENT History: states she has drainage in ears this year Cardiovascular History: Reports: None Respiratory History: Reports: None Gastrointestinal History: Reports: Chronic Constipation 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 ingrown toe nail removal - Infectious Disease History Infectious Disease History: Reports: Chicken Pox - Past Surgical History Female Surgical History: Reports: D&C Social & Family History - Family History Family Medical History: Unobtainable - Tobacco Use Tobacco Use Status *Q: Never Tobacco User - Caffeine Use Caffeine Use: Reports: None Review of Systems - Review of Systems Review Of Systems: Comprehensive ROS is negative, except as noted in HPI. ED EXAM, GENERAL - Physical Exam Exam: See Below Exam Limited By: No Limitations General Appearance: Alert, WD/WN, No Apparent Distress, Anxious (pt appears to be uncomfortable on ED cot; presumably from pain response) Respiratory/Chest: No Respiratory Distress, Lungs Clear, Normal Breath Sounds, No Accessory Muscle Use, Chest Non-Tender Cardiovascular: Normal Peripheral Pulses, Regular Rate, Rhythm Peripheral Pulses: 2+: Dorsalis Pedis (L), Dorsalis Pedis (R) Extremities: Normal Range of Motion, Normal Capillary Refill, Pedal Edema (pt states worse than normal, there is an appreciable amount of swelling noted; 2+), Redness (about the left great toe-where she had the ingrown toenail removed with small amount of purulent drainage) Neurological: Alert, Oriented, No Motor/Sensory Deficits Psychiatric: Anxious (presumed d/t pain) Skin Exam: Warm, Dry, Intact, Normal Color, No Rash, Erythema (about the left great toe-where she had the ingrown toenail removed with small amount of purul ent drainage), Increased Warmth Course - Vital Signs Last Recorded V/S: Last Vital Signs Temp 97.9 F 11/06/20 12:04 Pulse 100 11/06/20 12:04 Resp 18 11/06/20 12:04 BP 116/75 11/06/20 12:04 Pulse Ox 92 L 11/06/20 12:04 - Orders/Labs/Meds Meds: Medications Discontinued Medications Generic Name Dose Route Start Last Admin Trade Name Freq PRN Reason Stop Dose Admin Hydromorphone HCl 1 mg 11/06/20 12:15 Hydromorphone 1 Mg/Ml Syringe IM 11/06/20 12:16 ONETIME ONE Trimethoprim/Sulfamethoxazole 1 tab 11/06/20 12:15 Sulfamethoxazole/Trimethoprim 800-160 Mg Tab PO 11/06/20 12:16 ONETIME ONE - Re-Assessments/Exams Free Text/Narrative Re-Assessment/Exam: 11/06/20 12:36 Patient presents to the ER for the evaluation of her redness and swelling and painful left foot. She does have a little bit of purulent drainage, so we will get her on some antibiotics, and get her some pain management have her follow-up with her regular doctor, or the doctor that facilitated the toenail removal for ongoing management. Departure - Departure Time of Disposition: 13:23 Disposition: Home, Self-Care 01 Condition: Good Clinical Impression: Cellulitis of great toe, left, Post-op pain - Discharge Information *PRESCRIPTION DRUG MONITORING PROGRAM REVIEWED*: Yes *COPY OF PRESCRIPTION DRUG MONITORING REPORT IN PATIENT NATALYA: No Prescriptions: Sulfamethoxazole/Trimethoprim [Bactrim Ds Tablet] 1 tab PO BID 8 Days #15 tablet Hydrocodone/Acetaminophen [HYDROcodone-Acetaminophen 5-325 MG] 1 tab PO Q6H PRN #12 tablet PRN Reason: Pain Instructions: Pain Medicine Instructions, [id number] Referrals: Liliana Acosta PA-C [Primary Care Provider] - Forms: ED Department Discharge Additional Instructions: You were evaluated in the ER today for your left foot pain. Since you are having some drainage from your toe, you have been started on antibiotics for this. It will be 1 tablet 2 times a day for the next 8 days. You were given a prescription for a strong pain medication, hydrocodone/acetaminophen 5/325 mg, please take 1 tab every 6 hours as needed for pain not relieved by Tylenol or ibuprofen alone. Please note this medication does contain Tylenol in it, so do not take more than 4000 mg in a 24- hour time span. These medications can be addictive, so please take as few as possible to achieve adequate pain control. These meds can also be quite constipating, recommend that you increase your oral fluid intake and take a stool softener like MiraLAX while taking these medications. Do not drive while taking this medication. This medication [facility] electronically [facility]. Please follow-up with your provider, that did the ingrown toenail removal, for follow-up visit at this time. Recommend that you try to elevate your legs as much as possible over the next few days, to help relieve some of the swelling. Please continue to use your compression hose as well for ongoing management. Continue all other medications as prescribed by your regular provider, or other postop instructions as set forth by Dr. Stubbs. Do not hesitate to return to the ER at any time if symptoms change or worsen. Sepsis Event Note (ED) - Evaluation Sepsis Screening Result: No Definite Risk - Focused Exam Vital Signs: Vital Signs Temp Pulse Resp BP Pulse Ox 11/06/20 12:04 97.9 F 100 18 116/75 92 L
== END 2020-11-06 13:42 | disposition home or self-care (01) ==
LOC: JD.ED 11:56
DX: L03.032 Cellulitis of left toe (principal); E66.9 Obesity, unspecified; Z68.36 Body mass index [BMI] 36.0-36.9, adult
CPT/HCPCS: 96372; 99283; A9270; J1170

== ENCOUNTER 2020-11-06 18:09 | Emergency (ER) | payer OTHER ==
--- NOTE | 2020-11-06 19:14 | EDM.PDOC ---
ED HPI GENERAL MEDICAL PROBLEM - General Chief Complaint: Lower Extremity Injury/Pain Stated Complaint: LEFT LEG PAIN Time Seen by Provider: 11/06/20 19:14 - History of Present Illness INITIAL COMMENTS - FREE TEXT/NARRATIVE: 25-year-old female presents the emergency room with red swollen left leg. This is been going on for last several weeks but this seemed to start after he had a ingrown toenail surgery on the great toe of this leg. He has had significant redness from the foot right up into the ankle and then gets a splotchy year up the medial side of the leg. She denies any breathing difficulties or shortness of breath she is got no prior history of blood clots. She soaks her foot in Epson salts once a day if she remembers. She was seen here earlier today started on Madeline and Bactrim. She has not had associated fevers or chills but has not felt well. Left Leg Pain Score (Numeric/FACES): 10 - Related Data Allergies Allergy/AdvReac Type Severity Reaction Status Date / Time No Known Allergies Allergy Verified 11/06/20 18:38 Home Meds: Home Meds Pnv No.95/Ferrous Fum/Folic AC [ Vitamin Tablet] 1 tab PO DAILY 10/24/19 [History] Docusate Sodium [Colace] 100 mg PO BID PRN 08/29/20 [History] Nystatin [Nyamyc] 1 applic TOP DAILY PRN 08/29/20 [History] Nystatin [Nyamyc] 1 applic TOP TID 08/29/20 [History] Acetaminophen [Tylenol] 650 mg PO Q4H PRN tablet 08/30/20 [Rx] Benzocaine/Menthol [Dermoplast Pain Relief [place]] 1 spray TOP ASDIRECTED PRN canister 08/30/20 [Rx] Ibuprofen [Motrin] 600 mg PO Q6H PRN tablet 08/30/20 [Rx] witch Brianna [Tucks] 1 pad TOP ASDIRECTED PRN pad 08/30/20 [Rx] Amoxicillin/Potassium Clav [Augmentin 875-125 Tablet] 1 each PO BID #20 tablet 11/06/20 [Rx] Hydrocodone/Acetaminophen [HYDROcodone-Acetaminophen 5-325 MG] 1 tab PO Q6H PRN #12 tablet 11/06/20 [Rx] Sulfamethoxazole/Trimethoprim [Bactrim Ds Tablet] 1 tab PO BID 8 Days #15 tablet 11/06/20 [Rx] Past Medical History - Past Health History Medical/Surgical History: Denies Medical/Surgical History HEENT History: Reports: Other (See Below) Other HEENT History: states she has drainage in ears this year Cardiovascular History: Reports: None Respiratory History: Reports: None Gastrointestinal History: Reports: Chronic Constipation 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 ingrown toe nail removal - Infectious Disease History Infectious Disease History: Reports: Chicken Pox - Past Surgical History Female Surgical History: Reports: D&C Social & Family History - Family History Family Medical History: Unobtainable - Tobacco Use Tobacco Use Status *Q: Never Tobacco User - Caffeine Use Caffeine Use: Reports: None Review of Systems - Review of Systems Review Of Systems: See Below Constitutional: Reports: Chills. Denies: Fever, Weakness Eyes: Reports: No Symptoms Mouth/Throat: Reports: Difficulty Swallowing Cardiovascular: Reports: No Symptoms GI/Abdominal: Reports: No Symptoms, Other Musculoskeletal: Reports: No Symptoms Skin: Reports: Other (Symptoms in the affected lower leg) Neurological: Reports: No Symptoms Psychiatric: Reports: No Symptoms ED EXAM, GENERAL - Physical Exam Exam: See Below Exam Limited By: No Limitations General Appearance: Alert, No Apparent Distress Respiratory/Chest: No Respiratory Distress, Lungs Clear, Normal Breath Sounds Cardiovascular: Regular Rate, Rhythm, No Edema, No Murmur GI/Abdominal: Normal Bowel Sounds, Soft, Non-Tender Extremities: Other (Left leg is tender and swollen erythematous around the foot and ankle splotchy up the leg tenderness seems to follow the major venous structures) Neurological: Alert, Oriented, Normal Cognition Course - Vital Signs Last Recorded V/S: Last Vital Signs Temp 37.1 C 11/06/20 18:35 Pulse 99 11/06/20 18:35 Resp 16 11/06/20 18:35 BP 107/66 11/06/20 18:35 Pulse Ox 98 11/06/20 18:35 - Orders/Labs/Meds Orders: Active Orders 24 hr Category Date Time Status VL Duplex Lwr Ext Veins Ltd Lt [US] Stat Exams 11/06/20 19:21 Taken Labs: Laboratory Tests 11/06/20 11/06/20 11/06/20 Range/Units 19:30 19:30 19:30 WBC 18.75 H (3.98-10.04) K/mm3 RBC 4.74 (3.98-5.22) M/mm3 Hgb 12.7 D (11.2-15.7) gm/dl Hct 38.6 (34.1-44.9) % MCV 81.4 (79.4-94.8) fl MCH 26.8 (25.6-32.2) pg MCHC 32.9 (32.2-35.5) g/dl RDW Std Deviation 46.5 H (36.4-46.3) fL Plt Count 236 (182-369) K/mm3 MPV 10.6 (9.4-12.3) fl Neut % (Auto) 87.8 H (34.0-71.1) % Lymph % (Auto) 6.1 L (19.3-51.7) % [place] % (Auto) 5.6 (4.7-12.5) % Eos % (Auto) 0.1 L (0.7-5.8) Baso % (Auto) 0.1 (0.1-1.2) % Neut # (Auto) 16.46 H (1.56-6.13) K/mm3 Lymph # (Auto) 1.15 L (1.18-3.74) K/mm3 [place] # (Auto) 1.05 H (0.24-0.36) K/mm3 Eos # (Auto) 0.01 L (0.04-0.36) K/mm3 Baso # (Auto) 0.02 (0.01-0.08) K/mm3 PT 10.4 (9.7-12.0) SECONDS INR 0.93 APTT 25.9 (21.7-31.4) SECONDS Sodium 134 L (136-145) mEq/L Potassium 3.5 (3.5-5.1) mEq/L Chloride 99 (98-107) mEq/L Carbon Dioxide 23 (21-32) mEq/L Anion Gap 15.5 H (5-15) BUN 10 (7-18) mg/dL Creatinine 0.8 (0.55-1.02) mg/dL Est Cr Clr Drug Dosing 92.83 mL/min Estimated GFR (MDRD) > 60 (>60) mL/min BUN/Creatinine Ratio 12.5 L (14-18) Glucose 132 H (70-99) mg/dL Calcium 8.5 (8.5-10.1) mg/dL Total Bilirubin 0.7 (0.2-1.0) mg/dL AST 19 (15-37) U/L ALT 46 (14-59) U/L Alkaline Phosphatase 71 (46-116) U/L Total Protein 7.4 (6.4-8.2) g/dl Albumin 3.7 (3.4-5.0) g/dl Globulin 3.7 gm/dL Albumin/Globulin Ratio 1.0 (1-2) - Re-Assessments/Exams Free Text/Narrative Re-Assessment/Exam: 11/06/20 20:50 Patient has an elevated white count lower leg Dopplers negative for any DVT. This most likely represents a cellulitis secondary to her resolving great toe infection and ingrown toenail repair. Patient was appropriately started on Bactrim however we will continue this with the addition of Augmentin. I have also stressed the importance of warm Epson salt soaks for this foot 4-5 times a day. Departure - Departure Time of Disposition: 20:52 Disposition: Home, Self-Care 01 Clinical Impression: Cellulitis of left foot, Left leg cellulitis - Discharge Information Referrals: Liliana Acosta PA-C [Primary Care Provider] - Forms: ED Department Discharge Additional Instructions: Return to the emergency room with any questions problems or worsening symptoms. Follow-up with your healthcare provider in the clinic on Thursday for recheck. Continue the trimethoprim sulfa that you have been started on and I have added Augmentin 875 mg take 1 twice daily for 10 days. This was sent electronically to the [place] pharmacy in [place] [facility]. 20-minute Epson salt soaks 5 times a day with the affected foot sure and clean well and keep all debris out of nail grooves. Sepsis Event Note (ED) - Evaluation Sepsis Screening Result: No Definite Risk - Focused Exam Vital Signs: Vital Signs Temp Pulse Resp BP Pulse Ox 11/06/20 18:35 37.1 C 99 16 107/66 98 - My Orders Last 24 Hours: My Active Orders 11/06/20 19:21 VL Duplex Lwr Ext Veins Ltd Lt [US] Stat - Assessment/Plan Last 24 Hours: My Active Orders 11/06/20 19:21 VL Duplex Lwr Ext Veins Ltd Lt [US] Stat
--- NOTE | 2020-11-07 08:26 | US ---
Left lower extremity deep venous ultrasound: Duplex and color Doppler evaluation was obtained of the left common femoral, proximal greater saphenous, superficial femoral, popliteal, posterior tibial and peroneal veins. Right common femoral vein was also evaluated. Comparison: No prior venous imaging is available. Findings: Normal phasic flow, augmentation and compression is seen. Impression: 1. No findings of deep venous thrombosis within the left lower extremity or within the right common femoral vein. Diagnostic code #1 I agree with preliminary report from [facility], finalized on 11/06/20, 9:21 PM CDT, code 1
== END 2020-11-06 21:08 | disposition home or self-care (01) ==
LOC: JD.ED 18:09
DX: L03.116 Cellulitis of left lower limb (principal)
CPT/HCPCS: 36415; 80053; 85025; 85610; 85730; 93971-26-LT; 93971-LT; 99283; 99284-25